=== PATIENT | male | born 1985 | race Caucasian/White ===

== ENCOUNTER 2019-03-29 09:05 | Emergency (ER) | END 2019-03-29 09:53 | disposition home or self-care (01) | DX: S49.92XA Unspecified injury of left shoulder and upper arm, initial encounter (principal); Z91.018 Allergy to other foods; Z91.030 Bee allergy status; W17.89XA Other fall from one level to another, initial encounter; Y93.31 Activity, mountain climbing, rock climbing and wall climbing; Y92.89 Other specified places as the place of occurrence of the external cause; Y99.8 Other external cause status ==